=== PATIENT | female | born 1965 | race Caucasian/White ===

== ENCOUNTER 2017-11-24 23:34 | Emergency (ER) | payer BC ==
[2017-11-25] MEDS: IBUPROFEN 600 MG TAB PO (00:24)
== END 2017-11-25 01:27 | disposition home or self-care (01) ==
LOC: FTE 23:34
DX: M25.562 Pain in left knee (principal); M17.12 Unilateral primary osteoarthritis, left knee
CPT/HCPCS: 73562; 99283-25